=== PATIENT | female | born 1950 | race American Indian/Alaskan Native ===

== ENCOUNTER 2018-11-28 12:11 | Day surgery (SDC) | payer MEDICARE, OTHER ==
[~2018-11-28 12:11] MED LIST: AMIT10 PO; AMOCLA875 PO; ANAS1; ASPI325EC; ASPI81EC; ATOR20 PO; BACL10 PO; CALCAVITD; CIPR500 PO; LEVFLO500 PO; LEVSOD100 PO; LISI20 PO; LISINOPRIL; SULTRIDS PO; TAMS.4ER PO
== END 2018-11-28 22:41 | disposition home or self-care (01) ==
LOC: WOUND 12:11
DX: L89.893 Pressure ulcer of other site, stage 3 (principal); E11.622 Type 2 diabetes mellitus with other skin ulcer; L97.821 Non-pressure chronic ulcer of other part of left lower leg limited to breakdown of skin; I10 Essential (primary) hypertension
CPT/HCPCS: G0463

== ENCOUNTER 2018-12-04 00:18 | Day surgery (SDC) | payer MEDICARE, OTHER | END 2018-12-04 22:58 | disposition home or self-care (01) | LOC: WOUND 00:18 | DX: L89.894 Pressure ulcer of other site, stage 4 (principal) ==

== ENCOUNTER 2018-12-11 00:29 | Day surgery (SDC) | payer MEDICARE, OTHER | END 2018-12-11 22:53 | disposition home or self-care (01) | LOC: WOUND 00:29 | DX: L89.894 Pressure ulcer of other site, stage 4 (principal) | CPT/HCPCS: 87071; 87075; 87077; 87147; 87186; 87205 ==

== ENCOUNTER 2018-12-18 00:18 | Day surgery (SDC) | payer MEDICARE, OTHER | END 2018-12-18 22:38 | disposition home or self-care (01) | LOC: WOUND 00:18 | DX: L89.894 Pressure ulcer of other site, stage 4 (principal) ==

== ENCOUNTER 2019-01-01 00:32 | Day surgery (SDC) | payer MEDICARE, OTHER | END 2019-01-01 22:59 | disposition home or self-care (01) | LOC: WOUND 00:32 | DX: L89.894 Pressure ulcer of other site, stage 4 (principal); I10 Essential (primary) hypertension; E11.9 Type 2 diabetes mellitus without complications ==

== ENCOUNTER 2019-01-08 00:33 | Day surgery (SDC) | payer MEDICARE, OTHER | END 2019-01-08 22:49 | disposition home or self-care (01) | LOC: WOUND 00:33 | DX: L89.894 Pressure ulcer of other site, stage 4 (principal); I10 Essential (primary) hypertension ==

== ENCOUNTER 2019-01-15 00:24 | Day surgery (SDC) | payer MEDICARE, OTHER | END 2019-01-15 22:39 | disposition home or self-care (01) | LOC: WOUND 00:24 | DX: L89.894 Pressure ulcer of other site, stage 4 (principal); I10 Essential (primary) hypertension; E11.9 Type 2 diabetes mellitus without complications ==

== ENCOUNTER 2019-01-22 00:25 | Day surgery (SDC) | payer MEDICARE, OTHER | END 2019-01-22 23:04 | disposition home or self-care (01) | LOC: WOUND 00:25 | DX: L89.894 Pressure ulcer of other site, stage 4 (principal); I10 Essential (primary) hypertension; E11.9 Type 2 diabetes mellitus without complications ==

== ENCOUNTER 2019-01-29 00:47 | Day surgery (SDC) | payer MEDICARE, OTHER | END 2019-01-29 22:53 | disposition home or self-care (01) | LOC: WOUND 00:47 | DX: L89.894 Pressure ulcer of other site, stage 4 (principal); I10 Essential (primary) hypertension; E03.9 Hypothyroidism, unspecified; E11.9 Type 2 diabetes mellitus without complications; G82.20 Paraplegia, unspecified; Z99.3 Dependence on wheelchair ==

== ENCOUNTER 2019-02-05 14:29 | Day surgery (SDC) | payer MEDICARE, OTHER | END 2019-02-05 22:39 | disposition home or self-care (01) | LOC: WOUND 14:29 | DX: L89.894 Pressure ulcer of other site, stage 4 (principal); I10 Essential (primary) hypertension; E11.9 Type 2 diabetes mellitus without complications ==

== ENCOUNTER 2019-02-12 00:28 | Day surgery (SDC) | payer MEDICARE, OTHER | END 2019-02-12 23:00 | disposition home or self-care (01) | LOC: WOUND 00:28 | DX: L89.894 Pressure ulcer of other site, stage 4 (principal); E11.9 Type 2 diabetes mellitus without complications; I10 Essential (primary) hypertension; Z99.3 Dependence on wheelchair ==

== ENCOUNTER 2019-02-19 14:39 | Day surgery (SDC) | payer MEDICARE, OTHER | END 2019-02-19 22:38 | disposition home or self-care (01) | LOC: WOUND 14:39 | DX: L89.894 Pressure ulcer of other site, stage 4 (principal); E11.9 Type 2 diabetes mellitus without complications; I10 Essential (primary) hypertension; G82.20 Paraplegia, unspecified; E03.9 Hypothyroidism, unspecified; Z99.3 Dependence on wheelchair; Z79.899 Other long term (current) drug therapy | CPT/HCPCS: G0463 ==

== ENCOUNTER 2019-04-09 10:42 | Emergency (ER) | payer MEDICARE, OTHER ==
[~2019-04-09] VITALS: Ht 152.4 cm; Wt 81.7 kg
[2019-04-09] MEDS ORDERED: BACL20 PO (12:00)
[2019-04-09] MEDS ORDERED: LOVA40 PO (12:01)
[2019-04-09] MEDS ORDERED: HYDCHL25 PO (12:02)
== END 2019-04-09 13:50 | disposition home or self-care (01) ==
LOC: ER 10:42
DX: S82.144A Nondisplaced bicondylar fracture of right tibia, initial encounter for closed fracture (principal); S82.401A Unspecified fracture of shaft of right fibula, initial encounter for closed fracture; S80.02XA Contusion of left knee, initial encounter; E03.9 Hypothyroidism, unspecified; E78.00 Pure hypercholesterolemia, unspecified; W05.0XXA Fall from non-moving wheelchair, initial encounter
CPT/HCPCS: 73562-LT; 73590; 99283-25

== ENCOUNTER → 2019-09-05 | Outpatient (CLI) | payer MEDICARE, OTHER ==
[~2019-09-05] MED LIST changes: +BACL20 PO; +HYDCHL25 PO; +LOVA40 PO
[2019-09-05 15:58] LABS: Alanine Aminotransfer (ALT/SGP 30 U/L (12-78); Albumin, Blood 3.3 g/dL (3.4-5.0); Albumin/Globulin Ratio 0.7 (0.8-1.8); Alk Phos 80 U/L (50-136); Anion Gap 10 mmol/L (6-16); Aspartate Aminotrans (AST/SGOT 32 U/L (12-37); Bilirubin, Total 0.3 mg/dL (0.1-1.0); Blood Urea Nitrogen 16 mg/dL (8-24); Bun/Creatinine Ratio 23.1 (12.0-20.0); CHOL/HDL RATIO 3.7; CO2, Blood 28 mmol/L (21-32); Calcium, Blood 8.9 mg/dL (8.5-10.1); Chloride, Blood 96 mmol/L (98-108); Cholesterol 136 mg/dL (50-200); Creatinine, Blood 0.69 mg/dL (0.40-1.00); Free Thyroxine 1.57 ng/dL (0.70-1.60); Globulin, Blood 4.9 g/dL (2.2-4.0); Glomerular Filtration Rate >60 (60-); Glucose, Blood 167 mg/dL (70-99); HDL Cholesterol 37 mg/dL (>39); Potassium, Blood 3.4 mmol/L (3.5-5.5); Sodium, Blood 134 mmol/L (136-145); Total Protein, Blood 8.2 g/dL (6.4-8.2)
[2019-09-05 16:04] LABS: LDL/HDL RATIO 0.9; Low Density Lipoprotein Chol 33 mg/dL (0-110); Triglycerides 328 mg/dL (30-160); Very Low Density Lipoprot Chol 65 mg/dL (6-32)
== END | disposition home or self-care (01) ==
LOC: LAB SHORT 11:20 → LAB 11:20
PROVIDERS: Family Medicine
DX: E03.9 Hypothyroidism, unspecified (principal); I10 Essential (primary) hypertension
CPT/HCPCS: 80053; 80061; 84439; 84443

== ENCOUNTER → 2023-04-18 | Outpatient (CLI) | payer MEDICARE | LOC: LAB SHORT 17:15 | DX: N39.0 Urinary tract infection, site not specified (principal) | CPT/HCPCS: 87086 ==

== ENCOUNTER → 2024-08-01 | Outpatient (CLI) | payer MEDICARE, OTHER ==
[2024-08-01 16:51] LABS: BASOPHILS ABSOLUTE AUTO 0.03 K/mm3 (0.00-0.23); BASOPHILS PERCENT AUTO 0 % (0-2); EOSINOPHILS ABSOLUTE AUTO 0.03 K/mm3 (0.00-0.68); EOSINOPHILS PERCENT AUTO 0 % (0-6); Hematocrit 41.5 % (33.0-51.0); Hemoglobin 13.5 g/dL (11.5-16.0); IMMATURE GRAN ABSOLUTE AUTO 0.05 K/mm3 (0.00-0.10); IMMATURE GRAN PERCENT AUTO 1 % (0-1); LYMPHOCYTES ABSOLUTE AUTO 0.92 K/mm3 (0.84-5.20); LYMPHOCYTES PERCENT AUTO 8 % (21-46); MONOCYTES ABSOLUTE AUTO 0.46 K/mm3 (0.16-1.47); MONOCYTES PERCENT AUTO 4 % (4-13); Mean Corpuscular HGB 28.1 pg (26.0-34.0); Mean Corpuscular HGB Conc 32.5 g/dL (31.5-36.5); Mean Corpuscular Volume 86 fL (80-100); Mean Platelet Volume 10.9 fL (9.1-12.4); NEUTROPHILS ABSOLUTE AUTO 9.52 K/mm3 (1.96-9.15); NEUTROPHILS PERCENT AUTO 86 % (41-73); Platelet Count 160 K/mm3 (150-400); RDW Coefficient Variation 14.3 % (11.7-14.2); Red Blood Cell Count 4.81 M/mm3 (3.80-5.20); White Blood Cell Count 11.01 K/mm3 (4.00-11.30)
[2024-08-01 16:54] LABS: Very Low Density Lipoprot Chol 41 mg/dL (6-32)
[2024-08-01 17:04] LABS: Alanine Aminotransfer (ALT/SGP 48 U/L (12-78); Albumin, Blood 3.2 g/dL (3.4-5.0); Albumin/Globulin Ratio 0.7 (0.8-1.8); Alk Phos 82 U/L (50-136); Anion Gap 12 mmol/L (3-11); Aspartate Aminotrans (AST/SGOT 41 U/L (12-37); Bilirubin, Total 0.4 mg/dL (0.1-1.0); Blood Urea Nitrogen 34 mg/dL (8-24); Bun/Creatinine Ratio 39.2 (12.0-20.0); CHOL/HDL RATIO 3.6; CO2, Blood 26 mmol/L (21-32); Calcium, Blood 9.4 mg/dL (8.5-10.1); Chloride, Blood 101 mmol/L (98-108); Cholesterol 186 mg/dL (50-200); Creatinine, Blood 0.87 mg/dL (0.40-1.00); Globulin, Blood 4.7 g/dL (2.2-4.0); Glomerular Filtration Rate 70 (60-); Glucose, Blood 166 mg/dL (70-99); HDL Cholesterol 52 mg/dL (>39); LDL/HDL RATIO 1.8; Low Density Lipoprotein Chol 93 mg/dL (0-110); Potassium, Blood 3.5 mmol/L (3.5-5.5); Sodium, Blood 135 mmol/L (136-145); Total Protein, Blood 7.9 g/dL (6.4-8.2); Triglycerides 207 mg/dL (30-160)
== END ==
LOC: LAB SHORT 13:34 → LAB 13:34
PROVIDERS: Student in an Organized Health Care Education/Training Program
DX: E11.3293 Type 2 diabetes mellitus with mild nonproliferative diabetic retinopathy without macular edema, bilateral (principal); E03.9 Hypothyroidism, unspecified
CPT/HCPCS: 80053; 80061; 83036; 84443; 85025

== ENCOUNTER 2025-03-20 01:59 | Emergency (ER) | payer MEDICARE, OTHER ==
[~2025-03-20] VITALS: Ht 152.4 cm; Wt 72.1 kg
[2025-03-20 02:12] VITALS: BP 122/86
== END 2025-03-20 02:31 | disposition home or self-care (01) ==
LOC: ER 01:59
DX: M79.81 Nontraumatic hematoma of soft tissue (principal); E11.9 Type 2 diabetes mellitus without complications; E03.9 Hypothyroidism, unspecified; Z79.899 Other long term (current) drug therapy
CPT/HCPCS: 99283

== ENCOUNTER 2025-03-24 12:38 | Emergency (ER) | payer MEDICARE, OTHER ==
[~2025-03-24] VITALS: Ht 154.9 cm; Wt 72.6 kg
[2025-03-24 16:26] VITALS: BP 129/66
== END 2025-03-24 16:33 | disposition home or self-care (01) ==
LOC: ER 12:38
DX: T83.020A Displacement of cystostomy catheter, initial encounter (principal); Y84.6 Urinary catheterization as the cause of abnormal reaction of the patient, or of later complication, without mention of misadventure at the time of the procedure; E11.9 Type 2 diabetes mellitus without complications; E03.9 Hypothyroidism, unspecified; Z79.899 Other long term (current) drug therapy; Z79.890 Hormone replacement therapy
CPT/HCPCS: 51705; 99283-25